=== PATIENT | male | born 2000 | race Two or more races ===

== ENCOUNTER 2024-05-22 13:38 | Inpatient (IN) | payer MEDICAID, OTHER ==
[~2024-05-22] VITALS: Ht 167.6 cm; Wt 87.9 kg
[2024-05-22 14:00] VITALS: PULSE 69; RESP 20; O2SAT 97
--- NOTE | 2024-05-22 14:02 | ED.PDOC ---
Altered Mental Status HPI Comments 21 y.o male with PMH of seizure, presents to the ED via EMS for an evaluation of a near syncopal episode today witnessed by father at [employer] today. Father reports patient got up from his seat, lost his balance and assisted him back to sit down. EMS reports on scene father reported no seizure activity but patient was postictal, confused for about 20 minutes. Father does state patient is developmentally delayed but is back to his normal baseline upon ED arrival. Patient did have about 5 seizures witnessed by father today from [id number] at home. Patient has no head injury, nausea, vomiting, diarrhea. EMS noticed patient's blood pressure drop from 100 systolic to 85/47. IV fluids given in route bringing blood pressure back up to the 100's systolic. Per father, patient has a type of machine that controls/detects seizure activity. Chief Complaint: Syncope Time Seen by MD: 13:38 Reviewed Notes: Nurses Notes, [employer] Application Developer Notes, Medications, Allergies Allergies: Coded Allergies: NO KNOWN ALLERGIES (Unverified , 05/22/24) Information Source: Relative (Father), Emergency Med Personnel Mode of Arrival: EMS Severity: Moderate Timing: Minutes Duration: Since onset Prehospital treatment: IVF Quality: Decreased Alertness, Change in Behavior Recent: None History of: None Associated Signs and Symptoms: Other Past Medical History PAST MEDICAL HISTORY: Seizures Past Medical History (Other): developmentally delayed Surgical History (Other): neural stimulator Family History Family History: Reviewed,noncontributory to illness Social History Smoker: Non-Smoker Alcohol: Denies ETOH Use Drugs: Denies Drug Use Lives In: Home Constitutional: denies: chills, diaphoresis, fatigue, fever, malaise, sweats, weakness, others EENTM: denies: blurred vision, double vision, ear bleeding, ear discharge, ear drainage, ear pain, ear ringing, eye pain, eye redness, hearing loss, mouth pain, mouth swelling, nasal discharge, nose bleeding, nose congestion, nose pain, photophobia, tearing, throat pain, throat swelling, voice changes, others Respiratory: denies: cough, hemoptysis, orthopnea, SOB at rest, shortness of breath, SOB with excertion, stridor, wheezing, others Cardiovascular: denies: chest pain, dizzy spells, diaphoresis, Dyspnea on exe rtion, edema, irregular heart beat, left arm pain, lightheadedness, palpitations, PND, syncope, others Gastrointestinal: denies: abdomen distended, abdominal pain, blood streaked bowels, constipated, diarrhea, dysphagia, difficulty swallowing, hematemesis, melena, nausea, poor appetite, poor fluid intake, rectal bleeding, rectal pain, vomiting, others Genitourinary: denies: burning, dysuria, flank pain, frequency, hematuria, incontinence, penile discharge, penile sore, pain, testicle pain, testicle swelling, urgency, others Neurological: reports: fainting, seizure; denies: dizziness, headache, left sided numbness, left sided weakness, numbness, paresthesia, pre-existing deficit, right sided numbness, right sided weakness, speech problems, tingling, tremors, weakness, others Musculoskeletal: denies: back pain, gout, joint pain, joint swelling, muscle pain, muscle stiffness, neck pain, others Integumetry: denies: bruises, change in color, change in hair/nails, dryness, laceration, lesions, lumps, rash, wounds, others Allergic/Immunocompromised: denies: Difficulty Healing, Frequent Infections, Hives, Itching, others Hematologic/Lymphatic: denies: anemia, blood clots, easy bleeding, easy bruising, swollen glands, others Endocrine: denies: excessive hunger, excessive sweating, excessive thirst, excessive urination, flushing, intolerance to cold, intolerance to heat, unexplained weight gain, unexplained weight loss, others Psychiatric: denies: anxiety, bipolar disorder, depression, hopeless, panic disorder, schizophrenia, sleepless, suicidal, others All Other Systems: Reviewed and Negative Physical Exam General Appearance: Mild Distress HEENT: Normal ENT Inspection, Pharynx Normal, TMs Normal Neck: Full Range of Motion, Non-Tender, Normal, Normal Inspection Respiratory: Chest Non-Tender, Lungs Clear, No Accessory Muscle Use, No Respiratory Distress, Normal Breath Sounds Cardiovascular: No Edema, No JVD, No Murmur, No Gallop, Normal Peripheral Pulses, Regular Rate/Rhythm Breast Exam: Deferred Gastrointestinal: No Organomegaly, Non Tender, No Pulsatile Mass, Normal Bowel Sounds, Soft Genitalia: Deferred Pelvic: Deferred Rectal: Deferred Extremities: No calf tenderness, Normal capillary refill, Normal inspection, Normal range of motion, Non-tender, No pedal edema Musculoskeletal : Apperance: Normal Neurologic: logistics tech II-XII nml as Tested, Motor Weakness, No Sensory Deficits, Other (The patient was somewhat lethargic but may be somewhat at his baseline per family) Cerebellar Function: Normal Reflexes: Normal Skin: Dry, Normal Color, Warm Lymphatic: No Adenopathy Was a procedure done? Was a procedure done?: No Differential Diagnosis (ALOC) Differential Diagnosis: Dehydration, Encephalopathy, Seizure, Closed Head Injury X-Ray, Labs, Meds, VS Vital Signs Date Time Temp Pulse Resp B/P (MAP) Pulse Ox O2 Delivery O2 Flow Rate FiO2 05/22/24 16:00 60 22 102/65 (77) 95 05/22/24 14:00 69 20 97 Room Air* 0 21 05/22/24 14:00 69 20 114/79 (91) 97 05/22/24 13:54 98.6 62 16 108/72 (84) 95 Lab Test 05/22/24 14:08 Range/Units White Blood Count 6.7 4.4-10.8 10^3/uL Red Blood Count 4.68 4.5-5.90 10^6/uL Hemoglobin 14.6 13.5-17.5 g/dL Hematocrit 44.2 41.0-53.0 % Mean Corpuscular Volume 94.4 80.0-100.0 fL Mean Corpuscular Hemoglobin 31.2 28.0-32.0 pg Mean Corpuscular Hemoglobin Concent 33.1 32.0-36.0 g/dL Red Cell Distribution Width 14.8 H 11.8-14.3 % Platelet Count 264 140-450 10^3/uL Mean Platelet Volume 6.4 L 6.9-10.8 fL Neutrophils (%) (Auto) 53.3 37.0-80.0 % Lymphocytes (%) (Auto) 28.9 10.0-50.0 % Monocytes (%) (Auto) 8.9 0.0-12.0 % Eosinophils (%) (Auto) 7.5 H 0.0-7.0 % Basophils (%) (Auto) 1.4 0.0-2.0 % Neutrophils # (Auto) 3.6 1.6-8.6 10 ^3/uL Lymphocytes # (Auto) 1.9 0.4-5.4 10 ^3/uL Monocytes # (Auto) 0.6 0-1.3 10 ^3/uL Eosinophils # (Auto) 0.5 0-0.8 10 ^3/uL Basophils # (Auto) 0.1 0-0.2 10 ^3/uL Nucleated Red Blood Cells 0.2 % Sodium Level 141 136-145 mmol/L Potassium Level 3.8 3.5-5.1 mmol/L Chloride Level 106 98-107 mmol/L Carbon Dioxide Level 29 20-31 mmol/L Anion Gap 6 5-15 Blood Urea Nitrogen 8 L 9-23 mg/dL Creatinine 0.70 0.700-1.30 mg/dL Glomerular Filtration Rate Calc 134 >90 mL/min BUN/Creatinine Ratio 11.4 10.0-20.0 Serum Glucose 88 74-106 mg/dL Calcium Level 9.5 8.7-10.4 mg/dL Current Medications Medications (Trade) Dose Ordered Sig/Aidee Route Start Time Stop Time Status Last Admin Levetiracetam 100 ml @ 400 mls/hr ONCE ONCE IV 05/22/24 15:30 05/22/24 15:44 DC 05/22/24 15:29 EXAM: CT HEAD WITHOUT CONTRAST IMPRESSION: 1. No acute intracranial process. The patient was given Keppra 1000 mg IV piggyback. The patient's CBC and chemistry panel is within normal limits At this time, the patient had another seizure here in the emergency department's At this time, the patient was being admitted to the hospitalist Images Reviewed?: Images reviewed and evaluated by me Time of 1ST Reevaluation: 13:55 Reevaluation 1ST: Unchanged Patient Education/Counseling: Other Family Education/Counseling: Diagnosis, Treatment, Prognosis Departure 1 Departure Time of Disposition: 16:33 Impression: Primary Impression: Status epilepticus Disposition: 09 ADMITTED INPATIENT Admit to: Tele Condition: Fair Critical Care Note Critical Care Time?: Yes (35 min-critical care time only) Stability Stability form required: Yes Unstable for transfer: Telemetry monitoring (Telemetry monitoring required), ED Physician Assesment (Clinical assesment) I personally scribed for CARLTON SALAZAR MD ([email or web address]) on 05/22/24 at 14:02. Electronically submitted by Eunice Pineda ([facility]). I personally scribed for CARLTON SALAZAR MD ([email or web address]) on 05/22/24 at 15:35. Electronically submitted by Eunice Pineda ([facility]). CARLTON SALAZAR MD May 22, 2024 14:02
[2024-05-22 14:38] LABS: Basophils # (auto) 0.1 10 ^3/uL (0-0.2); Basophils % (auto) 1.4 % (0.0-2.0); Eosinophils # (auto) 0.5 10 ^3/uL (0-0.8); Eosinophils % (auto) 7.5 % (0.0-7.0); Hematocrit 44.2 % (41.0-53.0); Hemoglobin 14.6 g/dL (13.5-17.5); Lymphocytes # (auto) 1.9 10 ^3/uL (0.4-5.4); Lymphocytes % (auto) 28.9 % (10.0-50.0); Mean Corpuscular Hemoglobin 31.2 pg (28.0-32.0); Mean Corpuscular Hgb Conc. 33.1 g/dL (32.0-36.0); Mean Corpuscular Volume 94.4 fL (80.0-100.0); Monocytes # (auto) 0.6 10 ^3/uL (0-1.3); Monocytes % (auto) 8.9 % (0.0-12.0); Neutrophils # (auto) 3.6 10 ^3/uL (1.6-8.6); Neutrophils % (auto) 53.3 % (37.0-80.0); Nucleated Red Blood Cells % 0.2 %; Platelet Count (auto) 264 10^3/uL (140-450); Red Blood Cells 4.68 10^6/uL (4.5-5.90); Red Cell Distribution Width 14.8 % (11.8-14.3); White Blood Cell 6.7 10^3/uL (4.4-10.8)
[2024-05-22 14:40] LABS: Chloride 106 mmol/L (98-107); Potassium 3.8 mmol/L (3.5-5.1); Sodium 141 mmol/L (136-145)
[2024-05-22 14:41] LABS: Anion Gap 6 (5-15); Calcium 9.5 mg/dL (8.7-10.4); Carbon Dioxide 29 mmol/L (20-31)
[2024-05-22 14:46] LABS: BUN/Creatinine Ratio 11.4 (10.0-20.0); Blood Urea Nitrogen 8 mg/dL (9-23); Glucose 88 mg/dL (74-106)
--- NOTE | 2024-05-22 14:55 | DVH ---
EXAM: CT HEAD WITHOUT CONTRAST HISTORY: HEADACHE; WEAKNESS COMPARISON: None TECHNIQUE: Axial images were obtained and reformatted in coronal and sagittal planes. All CT scans at this medical facility are performed using dose modulation techniques as appropriate t o a performed exam including the following: Automated exposure control was utilized; adjustment of th e MA and/or KV according to patient size; and use of iterative reconstruction technique. CT Dose: CTDI volume is 53.99 mGy. Dose-length product is 863.9 mGy*cm FINDINGS: There is no evidence of acute intracranial hemorrhage, mass, mass effect midline shift. There is no h ydrocephalus or extra-axial fluid collection. Cain-white matter differentiation is maintained.. The visualized paranasal sinuses and mastoid air cells are clear. The calvarium is intact. IMPRESSION: 1. No acute intracranial process. HS:Y
[2024-05-22] MEDS: levETIRAcetam 1000 mg/100ml 100 ML IV ONE (15:29)
[2024-05-22 18:00] LABS: Urine Bacteria FEW /hpf (None Seen); Urine Blood Negative /uL (Negative); Urine Clarity Ex.Turbid (Clear); Urine Color Colorless (Yellow); Urine Mucus FEW (None Seen); Urine Protein, UAD Negative (Negative); Urine Specific Gravity 1.017 (1.001-1.035); Urine Urobilinogen Normal (Negative); Urine WBC 6 /hpf (0 - 3)
[2024-05-22] MEDS ORDERED: MORPHINE SULFATE INJ 2 MG/ml SYRG IV PRN (20:45)
[2024-05-22] MEDS ORDERED: ACETAMINOPHEN 325 MG TAB PO PRN (20:45)
[2024-05-22] MEDS ORDERED: NITROGLYCERIN 0.4 MG SL TAB SL PRN (20:45)
[2024-05-22] MEDS ORDERED: ONDANSETRON HCL 4 MG/2 ML VIAL IV PRN (20:45)
[2024-05-22] MEDS ORDERED: HYDROcodone-ACET 5/325MG TAB PO PRN (20:45)
[2024-05-22] MEDS: SODIUM CHLOR 0.9% PF (SALINE LOCK) 10ML VIAL/SYR IV SCH (22:05)
--- NOTE | 2024-05-22 22:29 | DVHHPRES ---
History of Present Illness Resident Creating Document: NATALIA GOTTI RESIDENT History of Present Illness This is a 23-year-old male with past medical history of epilepsy, autism with developmental delay , non verbal presented to the ED via EMS for an evaluation of a near syncopal episode today witnessed by father today. Father reports patient got up from his seat, lost his balance and assisted him back to sit down. EMS reports on scene father reported no seizure activity but patient was postictal, confused for about 20 minutes. According to the brother the patient has been experiencing seizures every night during sleep and has a type of machine that controls/detects seizure activity. The patient experienced 5 seizures witnessed by father today from [id number] at home also few episodes of seizure in the ED. Patient has no head injury, nausea, vomiting, diarrhea. On route to the ED the patient's blood pressure dropped from 100 to-85/47 and IV fluid given which helped to bring the blood pressure back up to 100. Past Medical History Epilepsy, autism with developmental delay Past Surgical History None Family History: None Smoke: No ALCOHOL: none Drugs: None Lives: with Family Review of Systems Review of Systems Review of system could not be assessed as patient is nonverbal Cardiovascular: Lt Headedness Allergies: Coded Allergies: NO KNOWN ALLERGIES (Unverified , 05/22/24) Medications Current Medications Medications Dose Ordered Sig/Aidee Route Start Time Stop Time Status Last Admin Dose Admin Sodium Chloride 10 ml Q8HR IV 05/22/24 22:00 05/22/24 22:05 10 ML Acetaminophen 325 mg Q4HP PRN PO 05/22/24 20:45 Acetaminophen/ Hydrocodone Bitart 1 tab Q4HP PRN PO 05/22/24 20:45 Ondansetron HCl 4 mg Q4HP PRN IV 05/22/24 20:45 Nitroglycerin 0.4 mg Q5MINP PRN SL 05/22/24 20:45 Morphine Sulfate 2 mg Q30M PRN IV 05/22/24 20:45 Exam Vital Signs Vital Signs Date Time Temp Pulse Resp B/P (MAP) Pulse Ox O2 Delivery O2 Flow Rate FiO2 05/22/24 21:30 60 20 102/61 (75) 94 05/22/24 19:55 Room Air* 0 21 05/22/24 13:54 98.6 General Appearance: Other (Nonverbal and mentally retarded) HEENT: Atraumatic, PERRLA, EOMI, Mucous membr. moist/pink Respiratory: Clear to auscultation, Normal air movement Cardiovascular: Regular rate, Normal S1, Normal S2, No murmurs Abdominal: Normal bowel sounds, Soft, No tenderness, No hepatospenomegaly, No masses Extremities: No clubbing, No cyanosis, No edema, Normal pulses, No tenderness/swelling Skin: No rashes, No breakdown, No significant lesion Neuro: Strength at 5/5 X4 ext, Normal tone, Sensation intact Labs/Xrays Labs Test 05/22/24 17:20 05/22/24 14:08 Range/Units Urine Color Colorless Yellow Urine Clarity Ex.turbid Clear Urine pH 7.0 5.0-9.0 Urine Specific [place] 1.017 1.001-1.035 Urine Protein Negative Negative Urine Ketones Negative Negative Urine Blood Negative Negative /uL Urine Nitrite Negative Negative Urine Bilirubin Negative Negative Urine Urobilinogen Normal Negative mg/dL Urine Leukocyte Esterase Negative Negative /uL Urine RBC 2 0 - 3 /hpf Urine WBC 6 0 - 3 /hpf Urine Squamous Epithelial Cells None seen <5 /hpf Urine Bacteria Few H None Seen /hpf Urine Mucus Few None Seen Urine Glucose Normal Normal mg/dL White Blood Count 6.7 4.4-10.8 10^3/uL Red Blood Count 4.68 4.5-5.90 10^6/uL Hemoglobin 14.6 13.5-17.5 g/dL Hematocrit 44.2 41.0-53.0 % Mean Corpuscular Volume 94.4 80.0-100.0 fL Mean Corpuscular Hemoglobin 31.2 28.0-32.0 pg Mean Corpuscular Hemoglobin Concent 33.1 32.0-36.0 g/dL Red Cell Distribution Width 14.8 H 11.8-14.3 % Platelet Count 264 140-450 10^3/uL Mean Platelet Volume 6.4 L 6.9-10.8 fL Neutrophils (%) (Auto) 53.3 37.0-80.0 % Lymphocytes (%) (Auto) 28.9 10.0-50.0 % Monocytes (%) (Auto) 8.9 0.0-12.0 % Eosinophils (%) (Auto) 7.5 H 0.0-7.0 % Basophils (%) (Auto) 1.4 0.0-2.0 % Neutrophils # (Auto) 3.6 1.6-8.6 10 ^3/uL Lymphocytes # (Auto) 1.9 0.4-5.4 10 ^3/uL Monocytes # (Auto) 0.6 0-1.3 10 ^3/uL Eosinophils # (Auto) 0.5 0-0.8 10 ^3/uL Basophils # (Auto) 0.1 0-0.2 10 ^3/uL Nucleated Red Blood Cells 0.2 % Sodium Level 141 136-145 mmol/L Potassium Level 3.8 3.5-5.1 mmol/L Chloride Level 106 98-107 mmol/L Carbon Dioxide Level 29 20-31 mmol/L Anion Gap 6 5-15 Blood Urea Nitrogen 8 L 9-23 mg/dL Creatinine 0.70 0.700-1.30 mg/dL Glomerular Filtration Rate Calc 134 >90 mL/min BUN/Creatinine Ratio 11.4 10.0-20.0 Serum Glucose 88 74-106 mg/dL Calcium Level 9.5 8.7-10.4 mg/dL Assessment/Plan Assessment/Plan Assessment and plan: # Near syncopal event likely due to seizure - Known history of epilepsy and has been experiencing seizure every day during sleep - CT head without contrast revealed no acute intracranial abnormality - Consulted neurology - Ordered echo, TSH, B12 and carotid Doppler # Recurrent breakthrough seizure - IV Ativan 1 mg Q 5 minutes p.r.n. - IV Keppra 500 mg b.i.d. # Autism with developmental delay and nonverbal Goal of care discussed with the family for more than 17 minutes full code Plan of treatment discussed with Dr. Amaro Plan discussed with: Patient, Other My Orders Orders - NATALIA OGTTI RESIDENT Procedure Category Date Status Time Admit ADMIT 05/22/24 Transmitted 20:40 Allergies DANG 05/22/24 In Process 20:40 Code Status CODE 05/22/24 Transmitted 20:40 Sodium Chloride Lock PHA 05/22/24 In Process (Saline Lock Ns) 22:00 Oxygen Per Hour RT 05/22/24 Transmitted 20:40 Acetaminophen Tablet PHA 05/22/24 In Process (Tylenol Tablet) 20:45 Hydrocodone-Acet PHA 05/22/24 In Process 5/325mg Tab ([place] 20:45 Ondansetron Hcl PHA 05/22/24 In Process (Zofran) 20:45 Complete Blood Count LAB 05/23/24 Verified 04:00 Comprehensive LAB 05/23/24 Verified Metabolic Panel 04:00 Echo 2d Mode Cardiac US 05/22/24 Logged DOP 20:40 Nitroglycerin PHA 05/22/24 In Process Sublingual (Ntrostat 20:45 Morphine Sulfate PHA 05/22/24 In Process Injection 20:45 Oxygen By Nasal RT 05/22/24 Transmitted Cannula 20:40 Stat Ekg For Chest [facility] 05/22/24 In Process Pain 20:40 Notify Md Of Changes [facility] 05/22/24 In Process From Base 20:40 Telephone Coin Box Collector For [facility] 05/22/24 In Process 24 Hours 20:40 Emergency Dysrhythmia [facility] 05/22/24 In Process Protocol 20:40 Rhythm Strips Once [facility] 05/22/24 In Process Every Shift 20:40 Date of Service: May 22, 2024 Billing Provider: VIVIANE AMARO MD Common Visit Codes: [id number] INP/OBS CARE (HIGH) NATALIA GOTTI RESIDENT May 22, 2024 22:29 VIVIANE AMARO MD May 26, 2024 09:25
[2024-05-22 23:27] VITALS: BP 100/56; PULSE 64; RESP 16; TEMP 97.2; O2SAT 97
[2024-05-23] VITALS (8 sets, daily range): BP systolic 92–110; BP diastolic 47–66; PULSE 62–88; RESP 16–18; TEMP 97.6–98.4; O2SAT 92–99
[2024-05-23] MEDS ORDERED: LORazepam 2MG/ML-1ML VIAL IV PRN (03:15)
[2024-05-23] MEDS: SODIUM CHLORIDE 0.9% 1,000 ML IV ONE (04:00)
[2024-05-23 06:00] LABS: Basophils # (auto) 0.1 10 ^3/uL (0-0.2); Basophils % (auto) 1.2 % (0.0-2.0); Eosinophils # (auto) 0.6 10 ^3/uL (0-0.8); Eosinophils % (auto) 9.1 % (0.0-7.0); Hematocrit 42.5 % (41.0-53.0); Hemoglobin 14.3 g/dL (13.5-17.5); Lymphocytes # (auto) 2.2 10 ^3/uL (0.4-5.4); Lymphocytes % (auto) 33.4 % (10.0-50.0); Mean Corpuscular Hemoglobin 31.5 pg (28.0-32.0); Mean Corpuscular Hgb Conc. 33.8 g/dL (32.0-36.0); Mean Corpuscular Volume 93.4 fL (80.0-100.0); Monocytes # (auto) 0.6 10 ^3/uL (0-1.3); Monocytes % (auto) 9.4 % (0.0-12.0); Neutrophils # (auto) 3.1 10 ^3/uL (1.6-8.6); Neutrophils % (auto) 46.9 % (37.0-80.0); Nucleated Red Blood Cells % 0.3 %; Platelet Count (auto) 254 10^3/uL (140-450); Red Blood Cells 4.55 10^6/uL (4.5-5.90); White Blood Cell 6.7 10^3/uL (4.4-10.8)
[2024-05-23 06:25] LABS: Alanine Aminotransferase 25 U/L (7-40); Alkaline Phosphatase 74 U/L (46-116); Anion Gap 7 (5-15); Aspartate Aminotransferase 14 U/L (13-40); BUN/Creatinine Ratio 13.3 (10.0-20.0); Bilirubin, Total 0.4 mg/dL (0.2-1.0); Blood Urea Nitrogen 8 mg/dL (9-23); Calcium 9.4 mg/dL (8.7-10.4); Carbon Dioxide 28 mmol/L (20-31); Chloride 106 mmol/L (98-107); Glucose 87 mg/dL (74-106); Potassium 3.8 mmol/L (3.5-5.1); Sodium 141 mmol/L (136-145)
[2024-05-23 06:26] LABS: Total Protein 6.3 g/dL (5.7-8.2)
--- NOTE | 2024-05-23 11:23 | DVH ---
Carotid Duplex Date: 05/23/2024 10:05 AM Clinical History: Near syncopal event Comparison: None Technique: Duplex Doppler evaluation of the extracranial carotid and vertebral arteries including color Doppler and spectral/pulsed waveform analysis was performed. Findings: Velocities and ratios within normal limits IMPRESSION: No hemodynamically significant stenosis noted in the right carotid system. No hemodynamically significant stenosis noted in the left carotid system. Reference: Radiology 2003; 229:[id number]
--- NOTE | 2024-05-23 11:53 | DVHPN2 ---
Progress Note Date Seen: May 23, 2024 Resident Creating Document: DEVYN HOBSON RESIDENT Medical Necessity Reason Pt with a Central, PICC or Fol: No Subjective Review of Systems The 23 years old male with past medical history of autism, seizure, nonverbal came with a complaint of near syncopal attack as per family. As per patient patient had a near-syncope like patient was getting DD and are almost fell off yesterday but father got him and prevent him from fall. As per brother patient gives seizure most of the night did not sleep at home. The patient came to the ER he had 2-3 seizures, the last 1 lasted for 20 seconds. Famotidine any fever, any constipation, diarrhea, any trauma to the head or chest, shortness of breaths. Patient usually goes to [facility] for treatment and patient he is a has his own neurologist. Initial lab work was reviewed and nonsignificant. CT scan of the head was negative for any acute intracranial hemorrhage or tumor or bleeding. Negative for any acute his transfused for the carotid artery. TSH 2.84,. B12 414. Calcium 9.2. PMH-autism, seizure, nonverbal PSH- none Allergy -NKDA Home meds Personal History/ Social History- lives with family, Patient was seen today at the bedside. Patient is nonverbal, catatonic Details could not be found as because patient is nonverbal Objective vital signs Vital Sign Date Time Temp Pulse Resp B/P (MAP) Pulse Ox O2 Delivery O2 Flow Rate FiO2 05/23/24 09:00 97.6 81 16 105/47 (66) 94 97.6 05/22/24 23:27 Room Air* 0 21 Total Intake and Output 05/22/24 05/22/24 05/23/24 15:00 23:00 07:00 Intake Total 225 ml Balance 225 ml medications Current Medications Medications Dose Ordered Sig/Aidee Route Start Time Stop Time Status Last Admin Dose Admin Sodium Chloride 10 ml Q8HR IV 05/22/24 22:00 05/23/24 04:00 10 ML Acetaminophen 325 mg Q4HP PRN PO 05/22/24 20:45 Acetaminophen/ Hydrocodone Bitart 1 tab Q4HP PRN PO 05/22/24 20:45 Ondansetron HCl 4 mg Q4HP PRN IV 05/22/24 20:45 Nitroglycerin 0.4 mg Q5MINP PRN SL 05/22/24 20:45 Morphine Sulfate 2 mg Q30M PRN IV 05/22/24 20:45 Levetiracetam 100 ml @ 400 mls/hr BID IV 05/23/24 10:00 Lorazepam 1 mg Q5MINP PRN IV 05/23/24 03:15 Examination General examination- patient nonverbal, catatonic HEENT- PEERLA, no acute nasal discharge Cardiovascular- S1-S2 audible, rate and rhythm regular, no murmur Respiratory- CTAB, no wheeze or rhonchi Gastrointestinal-nontender, bowel sound+. Nondistended Musculoskeletal-no acute joint swelling or tenderness or redness# Lower extremity- no leg edema Neurological--catatonic, rigidity to the arms and legs Skin- no acute rash or purpura laboratory and microbiology Laboratory Tests 05/23/24 05:13 Test 05/23/24 05:13 Range/Units Serum Glucose 87 74-106 mg/dL Microbiology Date/Time Source Procedure Growth Status 05/22/24 17:20 Urine - Midstream Clean Catch Urine Culture - Preliminary Resulted Problem List/Assessment/Plan Problem List/Assessment/Plan # dizziness likely due to orthostatic hypotension, benign paroxysmal positional vertigo/seizure - Known history of epilepsy and has been experiencing seizure every day during sleep - CT head without contrast revealed no acute intracranial abnormality - ordered Urology consult -carotid Doppler negative for significant stenosis - pending echo 2D # Recurrent breakthrough seizure - IV Ativan 1 mg Q 5 minutes p.r.n. - IV Keppra 500 mg b.i.d. # Autism with developmental delay and nonverbal Goals of care/advance care planning; FULL CODE; discussed with the patient PUD prophylaxis: DVT prophylaxis: Plan discussed with Dr. Farley,,, nursing staff, patient Total time spent on patient evaluation, chart review, assessment and plan, discussion discussion >20 minutes Plan discussed with: Patient DEVYN HOBSON RESIDENT May 23, 2024 11:53
[2024-05-23] MEDS ORDERED: CLOB20TA PO (12:41)
[2024-05-23] MEDS ORDERED: [UNRECOGNIZED DRUG - CODE] PO (12:41)
[2024-05-23] MEDS ORDERED: PERA1TAB PO (12:43)
[2024-05-23] MEDS ORDERED: CANN100S PO (12:43)
[2024-05-23] MEDS: levETIRAcetam 500 mg/100ml 100 ML IV SCH (13:27)
[2024-05-23] MEDS ORDERED: PATIENTS OWN MEDICATION PO SCH ×2 (14:00)
[2024-05-23] MEDS ORDERED: [UNRECOGNIZED DRUG - CODE] PO (14:08)
--- NOTE | 2024-05-23 14:16 | DVHPNRES ---
Progress Note Date Seen: May 23, 2024 Resident Creating Document: DEVYN HOBSON RESIDENT Medical Necessity Reason Pt with a Central, PICC or Fol: No Subjective Review of Systems The 23 years old male with past medical history of autism, seizure, nonverbal came with a complaint of near syncopal attack as per family. As per patient patient had a near-syncope like patient was getting DD and are almost fell off yesterday but father got him and prevent him from fall. As per brother patient gives seizure most of the night did not sleep at home. The patient came to the ER he had 2-3 seizures, the last 1 lasted for 20 seconds. Famotidine any fever, any constipation, diarrhea, any trauma to the head or chest, shortness of breaths. Patient usually goes to [facility] for treatment and patient he is a has his own neurologist. Initial lab work was reviewed and nonsignificant. CT scan of the head was negative for any acute intracranial hemorrhage or tumor or bleeding. Negative for any acute his transfused for the carotid artery. TSH 2.84,. B12 414. Calcium 9.2. PMH-autism, seizure, nonverbal PSH- none Allergy -NKDA Home meds Personal History/ Social History- lives with family, Patient was seen today at the bedside. Patient is nonverbal, catatonic Details could not be found as because patient is nonverbal Objective vital signs Vital Sign Date Time Temp Pulse Resp B/P (MAP) Pulse Ox O2 Delivery O2 Flow Rate FiO2 05/23/24 09:00 97.6 81 16 105/47 (66) 94 97.6 05/22/24 23:27 Room Air* 0 21 Total Intake and Output 05/22/24 05/22/24 05/23/24 15:00 23:00 07:00 Intake Total 225 ml Balance 225 ml medications Current Medications Medications Dose Ordered Sig/Aidee Route Start Time Stop Time Status Last Admin Dose Admin Sodium Chloride 10 ml Q8HR IV 05/22/24 22:00 05/23/24 04:00 10 ML Acetaminophen 325 mg Q4HP PRN PO 05/22/24 20:45 Acetaminophen/ Hydrocodone Bitart 1 tab Q4HP PRN PO 05/22/24 20:45 Ondansetron HCl 4 mg Q4HP PRN IV 05/22/24 20:45 Nitroglycerin 0.4 mg Q5MINP PRN SL 05/22/24 20:45 Morphine Sulfate 2 mg Q30M PRN IV 05/22/24 20:45 Levetiracetam 100 ml @ 400 mls/hr BID IV 05/23/24 10:00 05/23/24 13:27 400 MLS/HR Lorazepam 1 mg Q5MINP PRN IV 05/23/24 03:15 Patient Own Medication 1 HS PO 05/23/24 22:00 UNV Patient Own Medication 1 DAILY PO 05/24/24 10:00 UNV Examination General examination- patient nonverbal, catatonic HEENT- PEERLA, no acute nasal discharge Cardiovascular- S1-S2 audible, rate and rhythm regular, no murmur Respiratory- CTAB, no wheeze or rhonchi Gastrointestinal-nontender, bowel sound+. Nondistended Musculoskeletal-no acute joint swelling or tenderness or redness# Lower extremity- no leg edema Neurological--catatonic, rigidity to the arms and legs Skin- no acute rash or purpura laboratory and microbiology Laboratory Tests 05/23/24 05:13 Test 05/23/24 05:13 Range/Units Serum Glucose 87 74-106 mg/dL Microbiology Date/Time Source Procedure Growth Status 05/22/24 17:20 Urine - Midstream Clean Catch Urine Culture - Preliminary Resulted Problem List/Assessment/Plan Problem List/Assessment/Plan #Dizziness/presyncope likely due to orthostatic hypotension, benign paroxysmal positional vertigo/seizure - Known history of epilepsy and has been experiencing seizure every day during sleep - CT head without contrast revealed no acute intracranial abnormality - ordered Urology consult -carotid Doppler negative for significant stenosis - pending echo 2D # Recurrent breakthrough seizure - IV Ativan 1 mg Q 5 minutes p.r.n. - IV Keppra 500 mg b.i.d. -cannabidiol 100 milligram/mL-3 mL p.o. t.i.d. --clobazam 20 mg tablet p.o. q.h.s. -felbamate 600 mg per mL, 9 ml p.o. t.i.d. -Fycompa 10 mg p.o. daily # Autism with developmental delay and nonverbal Goals of care/advance care planning; FULL CODE; discussed with the patient PUD prophylaxis: DVT prophylaxis: Plan discussed with Dr. Farley,,, nursing staff, patient Total time spent on patient evaluation, chart review, assessment and plan, discussion discussion >20 minutes Plan discussed with: Patient Plan discussed with: Patient, Other (Father, mother, brother, RN) My Orders My Orders Orders - DEVYN HOBSON Procedure Category Date Status Time Communication Order ORDERS 05/23/24 Transmitted 13:50 Date of Service: May 23, 2024 Billing Provider: BENITA FARLEY MD Common Visit Codes: [id number] INP/OBS CARE(HIGH) DEVYN HOBSON May 23, 2024 14:16 BENITA FARLEY MD May 23, 2024 20:36
--- NOTE | 2024-05-23 19:20 | BSKYNEURO ---
[place] [facility] Note # Demographics Consult Type: General Neurology Patient Location: Inpatient First Name: donal Last Name: kelin Date of : 2000 Age: 23 Gender: Male Facility: [facility] Time of Initial Page (): 05/23/2024, 18:25 Time of Return Call (): 05/23/2024, 18:25 # HPI Chief Complaint: near syncope History: 23 yo p/w a near syncope episode. He stood up and fell backwards. His father help him sit back down. Patient was not responsive for about 20 min. He has refractory epilepsy since childhood and is on multiple sz medications. He follows with a neurologist for medication adjustment. Despite multiple ASMs, he still has nightly seizures, ranging from 1-5. He's currently back to his baseline. # Exam Mental Status: - awake Interactive Language: Mostly nonverbal Motor: Moves all 4 limbs spontaneously # ROS Additional: - complete review of systems otherwise negative # PMH-FH-SH Past Medical History: Epilepsy, autism, developmental delay # Data Head CT: - no bleed # Assessment Impression: Near syncope Medically refractory epilepsy # Plan Blood Pressure Management: - IV fluid bolus Labs: - TSH - B12 - ua Therapy/Evaluation: Check orthostatic VS Medication: Cont home ASMs Other: - If patient has any neurological deterioration please call me back immediately - telemetry monitoring - seizure precautions - neurology follow up as outpatient to discuss possible VNS and RNS for seizure control # Logistics Attestation of consult completion: The patient is located at: [facility]. Facility staff participated in the visit. I performed this telemedic ine visit from my offsite office utilizing interactive 2 way audio and visual telecommunication technology. Total time spent in telemedicine encounter: I spent 24 minutes reviewing clinical data and/or imaging, obtaining history, examining the patient, co mmunicating with the onsite care team, and in preparation of this report. # Demographics First Name: donal Last Name: kelin Facility: [facility] Electronically signed at 05/23/2024 19:19 () by Serena Foote MD Yes SERENA FOOTE MD May 23, 2024 19:20
[2024-05-23] MEDS: CLOBAZAM 20 MG PO SCH (22:15)
[2024-05-23] MEDS: EPIDIOLEX PO SCH (22:16)
[2024-05-23] MEDS: FELBAMATE PO SCH (22:16)
[2024-05-24 05:34] LABS: Basophils # (auto) 0.1 10 ^3/uL (0-0.2); Basophils % (auto) 1.1 % (0.0-2.0); Eosinophils # (auto) 0.5 10 ^3/uL (0-0.8); Eosinophils % (auto) 7.3 % (0.0-7.0); Hematocrit 43.6 % (41.0-53.0); Hemoglobin 14.8 g/dL (13.5-17.5); Lymphocytes # (auto) 2.3 10 ^3/uL (0.4-5.4); Lymphocytes % (auto) 33.3 % (10.0-50.0); Mean Corpuscular Hemoglobin 31.6 pg (28.0-32.0); Mean Corpuscular Hgb Conc. 33.9 g/dL (32.0-36.0); Mean Corpuscular Volume 93.2 fL (80.0-100.0); Monocytes # (auto) 0.6 10 ^3/uL (0-1.3); Monocytes % (auto) 7.9 % (0.0-12.0); Neutrophils # (auto) 3.5 10 ^3/uL (1.6-8.6); Neutrophils % (auto) 50.4 % (37.0-80.0); Platelet Count (auto) 271 10^3/uL (140-450); Red Blood Cells 4.67 10^6/uL (4.5-5.90); Red Cell Distribution Width 14.8 % (11.8-14.3)
[2024-05-24 05:41] LABS: Chloride 107 mmol/L (98-107); Potassium 3.7 mmol/L (3.5-5.1); Sodium 140 mmol/L (136-145)
[2024-05-24 05:42] LABS: Anion Gap 7 (5-15); Calcium 9.3 mg/dL (8.7-10.4); Carbon Dioxide 26 mmol/L (20-31)
[2024-05-24 05:47] LABS: Glucose 106 mg/dL (74-106)
[2024-05-24 05:48] LABS: BUN/Creatinine Ratio 14.9 (10.0-20.0); Blood Urea Nitrogen 10 mg/dL (9-23)
[2024-05-24 08:00] VITALS: PULSE 84
[2024-05-24 08:38] VITALS: BP_SYST 103; BP_SYST 110; BP_DIAS 62; BP_DIAS 63; PULSE 73; PULSE 99; RESP 18; RESP 20; TEMP 98.2; TEMP 98.4; O2SAT 100; O2SAT 93
[2024-05-24] MEDS: PERAMPANEL 10 MG PO SCH (11:21)
--- NOTE | 2024-05-24 12:57 | DVHSR ---
APPROVED REPORT EXAM: Two-dimensional and M-mode echocardiogram with Doppler and color Doppler. Blood Pressure: 92/58 mmHg INDICATION Syncope RISK FACTORS Height: 5' 6", Weight: 180 DIMENSIONS LVDd4.7 (3.8-5.7cm)LA (2D)3.1 (1.9-4.0cm)Aortic Root3.2 (2.0-3.7cm) LVDs3.4 (2.5-4.0cm)LA (MM) (1.9-4.0cm)Aortic Cusp Exc2.1 (1.5-2.0cm) EF (%) 54.0 (55-70%)Rt. Atrium2.7 (1.9-4.0cm)Asc. Aorta cm IVSd1.0 (0.7-1.1cm)RV (D) (1.8-2.4cm) PWd0.9 (0.7-1.1cm) Mitral Valve MitralMitral Stenosis E wave0.90m/sMV Mean GR.mmHg A wave0.50m/sMV Peak GR.mmHg E/A ratio1.82D MVAcm2 Aortic Valve Aortic ValveAortic Stenosis V10.90m/Nitesh Mean GR.3mmHg V21.20m/Nitesh Peak GR.6mmHg LVOT Diameter2.3 (1.8-2.4cm)Doppler AVA3.11cm2 Pulmonic Valve V20.60m/s Conclusion Normal left ventricular size and dimension. Normal left ventricular systolic function estimated ejec tion fraction 55%. There is a grade 1 diastolic dysfunction. Normal right ventricular size and dimension. Normal right ventricular systolic function. Normal biatrial size and dimension. Normal aortic valve structure and function. Normal mitral structure and function. Normal tricuspid valve structure and function. The pulmonary valve is grossly normal. No pericardial effusion.
[2024-05-24 13:00] VITALS: BP 138/70; PULSE 103; RESP 20; TEMP 97.9; O2SAT 95
--- NOTE | 2024-05-24 14:48 | DVHPNRES ---
Progress Note Date Seen: May 24, 2024 Resident Creating Document: VICENTA LOZA RESIDENT Has the PT tested + for MRSA If YES, has PT been informed?: No Medical Necessity Reason Pt with a Central, PICC or Fol: No Subjective Review of Systems This is a 23-year-old male with past medical history of epilepsy, autism with developmental delay , non verbal presented to the ED via EMS for an evaluation of a near syncopal episode the day who preseted to the ED witnessed by his father. The Father reports patient got up from his seat, lost his balance and assisted him back to sit down. EMS reports on scene father reported no seizure activity but patient was postictal, confused for about 20 minutes. According to the brother the patient has been experiencing seizures every night during sleep. The patient experienced 5 seizures witnessed by father today from [id number] at home also few episodes of seizure in the ED. Patient has no head injury, nausea, vomiting, diarrhea. On route to the ED the patient's blood pressure dropped from 100 to-85/47 and IV fluid given which helped to bring the blood pressure back up. Initial labs are grossly unremarkable and urinalysis came back negative for UTI. We performed a CT scan of the head without contrast which came back grossly unremarkable and carotid Doppler ultrasound showed no evidence of hemodynamic stenosis bilaterally. Patient was started on IV levetiracetam 500 mg IV b.i.d. plus his home antiseizure medications (felbamate, clobazam, Epidiolex and perampanel). Patient was admitted for further assessment and management. Patient seen and examined at bedside. Patient lying in bed, nonverbal, noncommunicative due to underlying condition of autism. Father was present at bedside we explained briefly past medical history. The father stated patient had a type of abscense seizure. Neurology was consulted for furtherassessment and management. On my examination patient has erythema in the right highlight which father explained that he is chronic and has been there for the past two months. Bilateral lung sounds grossly clear and heart sounds are regular and rhythmic. Rest of physical examination was unremarkable. We will wait for Neurology recommendations. ROS unable to obtain due to patient's current underlying condition of autism and inability to effectively communicate. Objective vital signs Vital Sign Date Time Temp Pulse Resp B/P (MAP) Pulse Ox O2 Delivery O2 Flow Rate FiO2 05/24/24 13:00 20 () 05/24/24 08:00 Room Air* 0 21 Total Intake and Output 05/23/24 05/23/24 05/24/24 15:00 23:00 07:00 Intake Total 600 ml Balance 600 ml medications Current Medications Medications Dose Ordered Sig/Aidee Route Start Time Stop Time Status Last Admin Dose Admin Sodium Chloride 10 ml Q8HR IV 05/22/24 22:00 05/24/24 06:00 10 ML Acetaminophen 325 mg Q4HP PRN PO 05/22/24 20:45 Acetaminophen/ Hydrocodone Bitart 1 tab Q4HP PRN PO 05/22/24 20:45 Ondansetron HCl 4 mg Q4HP PRN IV 05/22/24 20:45 Nitroglycerin 0.4 mg Q5MINP PRN SL 05/22/24 20:45 Morphine Sulfate 2 mg Q30M PRN IV 05/22/24 20:45 Levetiracetam 100 ml @ 400 mls/hr BID IV 05/23/24 10:00 05/24/24 11:21 400 MLS/HR Lorazepam 1 mg Q5MINP PRN IV 05/23/24 03:15 Patient Own Medication 1 HS PO 05/23/24 22:00 05/23/24 22:15 1 Patient Own Medication 1 DAILY PO 05/24/24 10:00 05/24/24 11:21 1 Patient Own Medication 3 TID PO 05/23/24 22:00 05/24/24 08:08 3 Patient Own Medication 9 TID PO 05/23/24 22:00 05/24/24 08:33 9 Examination Physical Examination General: Patient lying in bed, nonverbal, noncommunicative due to underlying autism. HEENT: Normocephalic, atraumatic, moist mucous membranes Respiratory/pulmonary: Clear lungs bilaterally, no associated crackles or wheezes. Cardiovascular: Normal regular heart sounds S1 and S2 with no associated murmurs Abdomen: Abdomen nondistended, there is no pain to palpation in any of the abdominal quadrants, no palpable masses. Extremities: There is no peripheral edema present at the lower extremities. Peripheral Pulses: 3+ Radial (R). 3+ Radial (L). 3+ Dorsalis pedis (R). 3+ Dorsalis pedis(L) Skin: No rashes or pruritus, there is no sacral edema present at this time. Neurological: Cranial nerves unable to evaluate due to patient's underlying autism, unable to cooperate. Patient is alert and awake laboratory and microbiology Laboratory Tests 05/24/24 05:01 Test 05/24/24 05:01 Range/Units Serum Glucose 106 74-106 mg/dL Microbiology Date/Time Source Procedure Growth Status 05/22/24 17:20 Urine - Midstream Clean Catch Urine Culture - Preliminary Resulted Problem List/Assessment/Plan Problem List/Assessment/Plan Assessment/Plan Presyncope and dizziness likely due to seizure disorder -Most likely due to postictal state -BPPV unlikely -patient has a known past medical history of seizure disorder -CT scan of the head without contrast came back unremarkable -carotid Doppler ultrasound showed no evidence of hemodynamic stenosis bilaterally -consulted neurology -echocardiogram showed an LVEF of 55% with normal cardiac valves and no pericardial effusion Recurrent breakthrough seizure/ seizure disorder -continue home medications (felbamate, clobazam, Epidiolex and perampanel) -continue IV levetiracetam 500 mg b.i.d. IV -lorazepam 1 mg q.4 p.r.n. History of autism and developmental delay -patient lying in bed, nonverbal, noncommunicative at all Goals of care discussed with the father at bedside for > 23min, FULL CODE Plan discussed with Dr. Farley Plan discussed with: Patient, Other (father at bedside which agreed and understod) Date of Service: May 24, 2024 Billing Provider: BENITA FARLEY MD Common Visit Codes: [id number] INP/OBS CARE(HIGH) VICENTA LZOA RESIDENT May 24, 2024 14:48 BENITA FARLEY MD May 25, 2024 21:28
[2024-05-24 17:00] VITALS: BP 98/66; PULSE 77; RESP 20; TEMP 97; O2SAT 92
[2024-05-24 20:00] VITALS: PULSE 83
[2024-05-24 21:00] VITALS: BP 95/51; PULSE 80; RESP 16; TEMP 97.7; O2SAT 93
[2024-05-25] MEDS: SODIUM CHLORIDE 0.9% 500 ML IV ONE (00:30)
[2024-05-25 01:00] VITALS: BP 89/50; PULSE 73; RESP 20; TEMP 98; O2SAT 95
[2024-05-25 01:38] VITALS: BP 95/53; PULSE 74
[2024-05-25 05:00] VITALS: BP 90/53; PULSE 77; RESP 20; TEMP 97.8; O2SAT 93
[2024-05-25 06:07] LABS: Basophils # (auto) 0.1 10 ^3/uL (0-0.2); Eosinophils # (auto) 0.6 10 ^3/uL (0-0.8); Eosinophils % (auto) 7.7 % (0.0-7.0); Hematocrit 42.8 % (41.0-53.0); Hemoglobin 14.2 g/dL (13.5-17.5); Lymphocytes # (auto) 2.1 10 ^3/uL (0.4-5.4); Lymphocytes % (auto) 28.8 % (10.0-50.0); Mean Corpuscular Hemoglobin 31.1 pg (28.0-32.0); Mean Corpuscular Hgb Conc. 33.3 g/dL (32.0-36.0); Mean Corpuscular Volume 93.6 fL (80.0-100.0); Monocytes # (auto) 0.5 10 ^3/uL (0-1.3); Monocytes % (auto) 7.5 % (0.0-12.0); Platelet Count (auto) 293 10^3/uL (140-450); Red Blood Cells 4.57 10^6/uL (4.5-5.90); Red Cell Distribution Width 14.9 % (11.8-14.3); White Blood Cell 7.3 10^3/uL (4.4-10.8)
[2024-05-25 06:20] LABS: Chloride 106 mmol/L (98-107); Potassium 3.8 mmol/L (3.5-5.1); Sodium 139 mmol/L (136-145)
[2024-05-25 06:21] LABS: Anion Gap 7 (5-15); Calcium 9.3 mg/dL (8.7-10.4); Carbon Dioxide 26 mmol/L (20-31)
[2024-05-25 06:26] LABS: BUN/Creatinine Ratio 12.1 (10.0-20.0); Blood Urea Nitrogen 8 mg/dL (9-23); Glucose 103 mg/dL (74-106)
[2024-05-25 06:27] LABS: Magnesium 1.9 mg/dL (1.6-2.6)
[2024-05-25 08:00] VITALS: PULSE 85; PULSE 87; RESP 17
[2024-05-25 08:36] VITALS: BP 108/67; PULSE 85; RESP 17; TEMP 98.1; O2SAT 92
--- NOTE | 2024-05-25 12:18 | DVHDSRES ---
Discharge Summary Date of Admission Resident Creating Document: DEVYN HOBSON May 22, 2024 at 20:40 Date of Discharge: May 25, 2024 Labs/Diagnostic Data: Laboratory Results Test 05/25/24 05:30 05/25/24 01:32 05/23/24 05:13 05/22/24 17:20 White Blood Count 7.3 10^3/uL (4.4-10.8) Red Blood Count 4.57 10^6/uL (4.5-5.90) Hemoglobin 14.2 g/dL (13.5-17.5) Hematocrit 42.8 % (41.0-53.0) Mean Corpuscular Volume 93.6 fL (80.0-100.0) Mean Corpuscular Hemoglobin 31.1 pg (28.0-32.0) Mean Corpuscular Hemoglobin Concent 33.3 g/dL (32.0-36.0) Red Cell Distribution Width 14.9 % (11.8-14.3) Platelet Count 293 10^3/uL (140-450) Mean Platelet Volume 6.4 fL (6.9-10.8) Neutrophils (%) (Auto) 55.0 % (37.0-80.0) Lymphocytes (%) (Auto) 28.8 % (10.0-50.0) Monocytes (%) (Auto) 7.5 % (0.0-12.0) Eosinophils (%) (Auto) 7.7 % (0.0-7.0) Basophils (%) (Auto) 1.0 % (0.0-2.0) Neutrophils # (Auto) 4.0 10 ^3/uL (1.6-8.6) Lymphocytes # (Auto) 2.1 10 ^3/uL (0.4-5.4) Monocytes # (Auto) 0.5 10 ^3/uL (0-1.3) Eosinophils # (Auto) 0.6 10 ^3/uL (0-0.8) Basophils # (Auto) 0.1 10 ^3/uL (0-0.2) Nucleated Red Blood Cells 0.0 % Sodium Level 139 mmol/L (136-145) Potassium Level 3.8 mmol/L (3.5-5.1) Chloride Level 106 mmol/L (98-107) Carbon Dioxide Level 26 mmol/L (20-31) Anion Gap 7 (5-15) Blood Urea Nitrogen 8 mg/dL (9-23) Creatinine 0.66 mg/dL (0.700-1.30) Glomerular Filtration Rate Calc 136 mL/min (>90) BUN/Creatinine Ratio 12.1 (10.0-20.0) Serum Glucose 103 mg/dL (74-106) Calcium Level 9.3 mg/dL (8.7-10.4) Magnesium Level 1.9 mg/dL (1.6-2.6) POC Glucose 125 mg/dl (70-106) Total Bilirubin 0.4 mg/dL (0.2-1.0) Aspartate Amino Transferase (AST) 14 U/L (13-40) Alanine Aminotransferase (ALT) 25 U/L (7-40) Alkaline Phosphatase 74 U/L (46-116) Total Protein 6.3 g/dL (5.7-8.2) Albumin 4.0 g/dL (3.2-4.8) Vitamin B12 Level 414 pg/mL (211-911) Thyroid Stimulating Hormone (TSH) 2.84 uIU/mL (0.55-4.78) Urine Color Colorless (Yellow) Urine Clarity Ex.turbid (Clear) Urine pH 7.0 (5.0-9.0) Urine Specific [place] 1.017 (1.001-1.035) Urine Protein Negative (Negative) Urine Ketones Negative (Negative) Urine Blood Negative /uL (Negative) Urine Nitrite Negative (Negative) Urine Bilirubin Negative (Negative) Urine Urobilinogen Normal mg/dL (Negative) Urine Leukocyte Esterase Negative /uL (Negative) Urine RBC 2 /hpf (0 - 3) Urine WBC 6 /hpf (0 - 3) Urine Squamous Epithelial Cells None seen /hpf (<5) Urine Bacteria Few /hpf (None Seen) Urine Mucus Few (None Seen) Urine Glucose Normal mg/dL (Normal) Other Laboratory Tests 05/25/24 05:30 Brief Hx & Hospital Course: The 23 years old male with past medical history of autism, seizure, nonverbal came with a complaint of near syncopal attack as per family. As per patient patient had a near-syncope like patient was getting DD and are almost fell off yesterday but father got him and prevent him from fall. As per brother patient gives seizure most of the night did not sleep at home. The patient came to the ER he had 2-3 seizures, the last 1 lasted for 20 seconds. Famotidine any fever, any constipation, diarrhea, any trauma to the head or chest, shortness of breaths. Patient usually goes to [facility] for treatment and patient he is a has his own neurologist. Initial lab work was reviewed and nonsignificant. CT scan of the head was negative for any acute intracranial hemorrhage or tumor or bleeding. Negative for any acute his transfused for the carotid artery. TSH 2.84,. B12 414. Calcium 9.2. Echo 2D LVEF 55%. Patient was seen by neurologist, recommend she reviewed and appreciated. Patient returned to his baseline . Patient is being discharged home in a hemodynamically stable condition. Patient's family was advised to follow up with the PCP and neurologist in 1 week. PMH-autism, seizure, nonverbal PSH- none Allergy -NKDA Home meds Personal History/ Social History- lives with family, Patient was seen today at the bedside. Patient is nonverbal, catatonic Details could not be found as because patient is nonverbal General examination- patient nonverbal, catatonic HEENT- PEERLA, no acute nasal discharge Cardiovascular- S1-S2 audible, rate and rhythm regular, no murmur Respiratory- CTAB, no wheeze or rhonchi Gastrointestinal-nontender, bowel sound+. Nondistended Musculoskeletal-no acute joint swelling or tenderness or redness# Lower extremity- no leg edema Neurological--catatonic, rigidity to the arms and legs Skin- no acute rash or purpura Operations or Procedures Signed PATIENT: JEREMY ECHEVERRIA DACCT: [id number] UNIT: [id number] : 2000 LOC: [facility]GE / SEX: 23 / M ADM STATUS: ADM IN SERVICE 2 ORDERING PHYSICIAN: NATALIA GOTTI RESIDENT PROCEDURE(s): CARCL - CAROTID DUPLX W COLOR DOP REASON: Near syncopal event ORDER NUMBER(s): [id number], ACCESSION NUMBER(s): [id number] Carotid Duplex Date: 05/23/2024 10:05 AM Clinical History: Near syncopal event Comparison: None Technique: Duplex Doppler evaluation of the extracranial carotid and vertebral arteries including color Doppler and spectral/pulsed waveform analysis was performed. Findings: Velocities and ratios within normal limits IMPRESSION: No hemodynamically significant stenosis noted in the right carotid system. No hemodynamically significant stenosis noted in the left carotid system. Reference: Radiology 2003; 229:[id number] ATED BY: ERIBERTO HERNANDEZ MD DICTATED DATE/TIME: 05/23/24 1120 SIGNED BY: ERIBERTO HERNANDEZ MD SIGNED DATE/TIME: 05/23/24 112 CC: Diagnostic Imaging Report : [id number] Signed PATIENT: JEREMY ECHEVERRIA ACCT: [id number] UNIT: [id number] : 2000 LOC: ER ROOM / BED: / AGE / SEX: 23 / M ADM STATUS: REG ER SERVICE 1400 ORDERING PHYSICIAN: CARLTON SALAZAR MD PROCEDURE(s): HWOCT - HEAD WITHOUT CONTRAST REASON: HEADACHE; WEAKNESS ORDER NUMBER(s): [id number], ACCESSION NUMBER(s): [id number] EXAM: CT HEAD WITHOUT CONTRAST HISTORY: HEADACHE; WEAKNESS COMPARISON: None TECHNIQUE: Axial images were obtained and reformatted in coronal and sagittal planes. All CT scans at this medical facility are performed using dose modulation techniques as appropriate to a performed exam including the following: Automated exposure control was utilized; adjustment of the MA and/or KV according to patient size; and use of iterative reconstruction technique. CT Dose: CTDI volume is 53.99 mGy. Dose-length product is 863.9 mGy*cm FINDINGS: There is no evidence of acute intracranial hemorrhage, mass, mass effect midline shift. There is no hydrocephalus or extra-axial fluid collection. Cain-white matter differentiation is maintained.. The visualized paranasal sinuses and mastoid air cells are clear. The calvarium is intact. IMPRESSION: 1. No acute intracranial process. HS:Y ATED BY: ARTHUR CANDELARIO MD DICTATED DATE/TIME: 05/22/241452 SIGNED BY: ARTHUR CANDELARIO MD SIGNED DATE/TIME: 05/22/241452 CC: PATIENT: JEREMY ECHEVERRIA DACCT: [id number] UNIT: [id number] : 2000 LOC: TELE-[facility] ROOM / BED: 0207T / A AGE / SEX: 23 / M ADM STATUS: ADM IN SERVICE 39 ORDERING PHYSICIAN: NATALIA GOTTI PROCEDURE(s): ECIDC - ECHO 2D MODE CARDIAC DOP REASON: Syncope ORDER NUMBER(s): [id number], ACCESSION NUMBER(s): [id number] APPROVED REPORT EXAM: Two-dimensional and M-mode echocardiogram with Doppler and color Doppler. Blood Pressure: 92/58 mmHg INDICATION Syncope RISK FACTORS Height: 5' 6", Weight: 180 DIMENSIONS LVDd 4.7 (3.8-5.7cm) LA (2D) 3.1 (1.9-4.0cm) Aortic Root 3.2 (2.0- 3.7cm) LVDs 3.4 (2.5-4.0cm) LA (MM) (1.9-4.0cm) Aortic Cusp Exc 2.1 (1.5- 2.0cm) EF (%) 54.0 (55-70%) Rt. Atrium 2.7 (1.9-4.0cm) Asc. Aorta cm IVSd 1.0 (0.7-1.1cm) RV (D) (1.8-2.4cm) PWd 0.9 (0.7-1.1cm) Mitral Valve Mitral Mitral Stenosis E wave 0.90m/s MV Mean GR. mmHg A wave 0.50m/s MV Peak GR. mmHg E/A ratio 1.8 2D MVA cm2 Aortic Valve Aortic Valve Aortic Stenosis V1 0.90m/s AO Mean GR. 3mmHg V2 1.20m/s AO Peak GR. 6mmHg LVOT Diameter 2.3 (1.8-2.4cm) Doppler PARUL 3.11cm2 Pulmonic Valve V2 0.60m/s Conclusion Normal left ventricular size and dimension. Normal left ventricular systolic function estimated ejection fraction 55%. There is a grade 1 diastolic dysfunction. Normal right ventricular size and dimension. Normal right ventricular systolic function. Normal biatrial size and dimension. Normal aortic valve structure and function. Normal mitral structure and function. Normal tricuspid valve structure and function. The pulmonary valve is grossly normal. No pericardial effusion. SIGNED BY: CITLALI CUETO MD SIGNED DATE/TIME: 05/24/24 1257 CC: Condition at Discharge: Stable Final Diagnosis/Problems List Presyncope and dizziness likely due to seizure disorder Recurrent breakthrough seizure/ seizure disorder History of autism and developmental delay Discharge Disposition: Home Discharge Instruct/Medications Diet: Regular Activity: No Restrictions, As Tolerated Follow Up/Referral: F/U with his PCP in 1 week F/U with his neurologist in 1-2weeks Medications: Continue home medications for seizures Discharge Statement: "Patient was advised to return to the ER or call 911 if any headaches, dizziness, shortness of breath, chest pain, abdominal pain, bleeding, fevers, or worsening of medical condition. Patient was counseled about treatment plan, medications, possible side effects, patientverbalized understanding. All questions were answered to the best of my ability. This discharge took greater then 30 minutes in planning, reviewing documentation, counseling the patient, and discussing with other team members." ASSESSMENT ASSESSMENT Assessment Presyncope and dizziness likely due to seizure disorder Recurrent breakthrough seizure/ seizure disorder History of autism and developmental delay Date of Service: May 25, 2024 Billing Provider: BENITA MURPHY MD Common Visit Codes: [id number] DISCH DAY >30min DEVYN HOBSON RESIDENT May 25, 2024 12:18 BENITA MURPHY MD May 25, 2024 21:28
[2024-05-25 13:00] VITALS: BP 105/59; PULSE 49; RESP 16; TEMP 98.9; O2SAT 96
== END 2024-05-25 14:00 | disposition home or self-care (01) | DRG 53 ==
LOC: ER 13:38 → TELE 20:40 → TELE-CENTR 23:27
PROVIDERS: ADMIT Internal Medicine Geriatric Medicine; ATTEND Internal Medicine Geriatric Medicine
DX: G40.901 Epilepsy, unspecified, not intractable, with status epilepticus (principal); F84.0 Autistic disorder; H81.10 Benign paroxysmal vertigo, unspecified ear; I95.1 Orthostatic hypotension
CPT/HCPCS: 36415; 70450; 80048; 80053; 81001; 82607; 82962; 83735; 84443; 85025; 87086; 93306; 93886; 99291; G0378